=== PATIENT | female | born 1970 | race Caucasian/White ===

== ENCOUNTER → 2018-05-17 | Outpatient (CLI) | payer OTHER ==
[~2018-05-17] MED LIST: CEPH500 PO; ERRIN PO; PROG100 PO; Pyridium100 MG PO
[2018-05-31 12:48] LABS: Result SEE LABOUT RESULTS
== END | disposition home or self-care (01) ==
LOC: LAB SHORT 12:16 → LAB 12:16
PROVIDERS: Obstetrics & Gynecology
DX: Z01.812 Encounter for preprocedural laboratory examination (principal)
CPT/HCPCS: G0480

== ENCOUNTER 2018-06-18 10:03 | Day surgery (SDC) | payer OTHER ==
[~2018-06-18] VITALS: Ht 154.9 cm; Wt 50.4 kg
--- NOTE | 2018-06-18 11:09 | NUR ---
Ambulatory in [facility] warming gown applied. Surgical site prepped with 2% Chlorhexidine cloth wipe. History, Chart, Medications and Allergies reviewed before start of procedure.Lungs clear T/O to Auscultation. Patient confirms NPO status and agrees with scheduled surgery. Patient reports completing Chlorhexadine shower X2 prior to admission to hospital. NO ANTIBIOTIC ORDERED. BELONGINGS PLACED UNDER THE BED.
--- NOTE | 2018-06-18 16:07 | NUR ---
Patient up to Ambulate independently. Gait steady. Discharge instructions reviewed with patient. Patient verbalizes understanding. Copy given to patient to take home. Dressing to procedure site clean, dry, intact with no visible drainage, swelling, erythema or bruising noted. Patient States Post-Procedure ride home has been arranged. Discharged via wheelchair to private car for ride home. Pt's partner, Gerardo, at bedside during discharge instructions and is providing ride home.
== END 2018-06-18 22:39 | disposition home or self-care (01) ==
LOC: ORSCMMR 10:03 → ORD 11:45 → ORSCMMR 22:39
PROVIDERS: Obstetrics & Gynecology
PROC: 0UT74ZZ Resection of Bilateral Fallopian Tubes, Percutaneous Endoscopic Approach (ICD-10-PCS; principal; 2018-06-18 12:15)
PROC: 0UT24ZZ Resection of Bilateral Ovaries, Percutaneous Endoscopic Approach (ICD-10-PCS; principal; 2018-06-18 12:15)
DX: Z87.42 Personal history of other diseases of the female genital tract (principal); R10.30 Lower abdominal pain, unspecified; K66.0 Peritoneal adhesions (postprocedural) (postinfection); Q50.5 Embryonic cyst of broad ligament; J45.909 Unspecified asthma, uncomplicated; Z79.899 Other long term (current) drug therapy
CPT/HCPCS: 88305; J2250; J3010; J7030; J7120